=== PATIENT | female | born 1955 | race Caucasian/White ===

== ENCOUNTER 2016-03-23 17:46 | Emergency (ER) | payer MEDICARE, OTHER ==
[~2016-03-23] VITALS: Ht 154.9 cm; Wt 120.0 kg
[~2016-03-23 17:46] MED LIST: ATOR80TA PO; BENZ100 PO; CITA-48 PO; CYCL-36 PO; GABA300C3 PO; GLIP5 PO; LEVEMIR SQ; LOSA100T3 PO; METF-324 PO; NIAC1TAB5 PO; OMEP20TA PO
[2016-03-23 17:51] VITALS: BP 136/68; PULSE 87; RESP 12; TEMP 98.8; O2SAT 96
[2016-03-23 19:55] VITALS: BP 137/63; PULSE 79; RESP 18; O2SAT 95
[2016-03-23] MEDS ORDERED: LOSA100T3 PO (19:56)
[2016-03-23] MEDS ORDERED: ATOR1TAB18 PO (19:56)
[2016-03-23] MEDS ORDERED: GABA300C5 PO (19:56)
[2016-03-23] MEDS ORDERED: METF1000 PO (19:56)
[2016-03-23] MEDS ORDERED: SODIUM CHLOR 0.9% 1000 ML INJ 1,000 ML IV ONE (20:15)
--- NOTE | 2016-03-23 21:26 | RADRPT ---
EXAM DATE/TIME: 03/23/2016 21:17 [facility] COMPARISON: CT BRAIN W/O CONTRAST, December 09, 2015, 11:07. INDICATIONS : Trauma; dizziness. RADIATION DOSE: 49.30 CTDIvol (mGy) MEDICAL HISTORY : Cerebrovascular disease. Hypertension. SURGICAL HISTORY : None. ENCOUNTER: Initial ACUITY: 1 day PAIN SCALE: 0/10 LOCATION: cranial TECHNIQUE: Multiple contiguous axial images were obtained of the head. Using automated exposure control and adj ustment of the mA and/or kV according to patient size, radiation dose was kept as low as reasonably a chievable to obtain optimal diagnostic quality images. FINDINGS: CEREBRUM: The ventricles are normal for age. No evidence of midline shift, mass lesion, hemorrhage or acute in farction. No extra-axial fluid collections are seen. POSTERIOR FOSSA: The cerebellum and brainstem are intact. The 4th ventricle is midline. The cerebellopontine angle i s unremarkable. EXTRACRANIAL: The visualized portion of the orbits is intact. SKULL: The calvaria is intact. No evidence of skull fracture. CONCLUSION: Negative for an acute process.. Gerald Riddle MD FACR on March 23, 2016 at 21:24 Board Certified Radiologist. This report was verified electronically.
--- NOTE | 2016-03-23 22:17 | PD ---
HPI Chief Complaint: Anxiety Time Seen by Provider: 19:51 Travel History International Travel<30 days: No Contact w/Intl Traveler<30days: No Traveled to known affect area: No History of Present Illness HPI Patient 6-year-old female presents with anxiety symptoms. Patient is given 3 different histories. To my medical student her chief complaint was palpitations , her chief complaint me was dizziness and headache, her chief complaint to triage was anxiety. Patient states that she started feeling like the room was closing in on her earlier today for at least 6 hours began to feel some palpitations dizziness. She states she's also been having a headache. She is also concerned that she might be having mild withdrawals. Denies any fever cough congestion. Nursing relates a history that the patient possibly presented to a longterm today as she is homeless and was turned away because of her fall and that may have triggered her symptoms. My initial evaluation the patient is sleeping soundly and in no apparent distress. PFSH Past Medical History Hx Anticoagulant Therapy: Yes Arthritis: No Asthma: Yes Anxiety: Yes Depression: Yes Heart Rhythm Problems: No Cancer: No Cardiovascular Problems: Yes (HTN) High Cholesterol: Yes Chest Pain: No Congestive Heart Failure: No COPD: No Cerebrovascular Accident: Yes (CVA) Diabetes: Yes Patient Takes Glucophage: Yes Diminished Hearing: No Endocrine: Yes Gastrointestinal Disorders: No Genitourinary: No Hypertension: Yes Immune Disorder: No Implanted Vascular Access Dvce: No Musculoskeletal: Yes Neurologic: No Psychiatric: Yes Reproductive: No Respiratory: Yes (asthma) Sleep Apnea: Yes (IS SUPPOSED TO USE CPAP AT NIGHT) Thyroid Disease: No Tetanus Vaccination: Unknown Influenza Vaccination: Yes ?: Not : 0 Para: 0 Miscarriage: 0 : 0 Past Surgical History Abdominal Surgery: No Cardiac Surgery: No Coronary Artery Bypass Graft: No Ear Surgery: No Endocrine Surgery: No Eye Surgery: No Genitourinary Surgery: No Gynecologic Surgery: No Neurologic Surgery: No Oral Surgery: No Thoracic Surgery: No Other Surgery: Yes Family History Family Myocardial Infarction: Yes Social History Alcohol Use: Yes (occ) Tobacco Use: Yes Substance Use: No Allergies-Medications (Allergen,Severity, Reaction): Coded Allergies: No Known Allergies (Unverified , 03/23/16) Reported Meds & Prescriptions Reported Meds & Active Scripts Active Reported Losartan-Hydrochlorothiazide 100-12.5 Mg Tab 1 Tab PO DAILY Gabapentin 300 Mg Cap 300 Mg PO TID Atorvastatin (Atorvastatin Calcium) 80 Mg Tab 80 Mg PO HS Metformin (Metformin HCl) 1,000 Mg Tab 1,000 Mg PO BIDPC With meals Review of Systems Except as stated in HPI: all other systems reviewed are Neg Physical Exam Narrative GENERAL: Well-developed well-nourished obese in no apparent distress unkempt. SKIN: Warm and dry. HEAD: Atraumatic. Normocephalic. EYES: Pupils equal and round. No scleral icterus. No injection or drainage. ENT: No nasal bleeding or discharge. Mucous membranes pink and moist. NECK: Trachea midline. No JVD. CARDIOVASCULAR: Regular rate and rhythm. No murmur appreciated. RESPIRATORY: No accessory muscle use. Clear to auscultation. Breath sounds equal bilaterally. GASTROINTESTINAL: Abdomen soft, non-tender, nondistended. Hepatic and splenic margins not palpable. MUSCULOSKELETAL: No obvious deformities. No clubbing. No cyanosis. No edema. NEUROLOGICAL: Awake and alert. Cranial nerves II through XII are grossly intact and nonfocal, 5 out of 5 strength in all 4 extremities. Cerebellar testing negative. Ambulates within even narrow-based gait. PSYCHIATRIC: Appropriate mood and affect; insight and judgment normal. Data Data Last Documented VS Vital Signs Date Time Temp Pulse Resp B/P Pulse Ox O2 Delivery O2 Flow Rate FiO2 03/23/16 19:55 99 18 03/23/16 19:55 137/63 95 Room Air 03/23/16 17:51 98.8 Orders Sodium Chlor 0.9% 1000 Ml Inj (Ns 1000 M (03/23/16 20:15) Ct Brain W/O Iv Contrast(Rout) (03/23/16 ) Electrocardiogram (03/23/16 ) MDM Medical Decision Making Medical Screen Exam Complete: Yes Emergency Medical Condition: Yes Interpretation(s) EKG shows normal sinus rhythm normal axis normal R-wave progression. No concerning ST T changes. This normal EKG. Differential Diagnosis Anxiety, palpitations, headache, poor social circumstance Narrative Course Patient was removing emergency department, CT head negative EKG reassuring. My revisit she is sleeping soundly in no apparent distress. She was offered pain medicine and declined P Rich is stable for discharge at this time. Discussed with her follow-up options including [facility] clinic. Diagnosis Primary Impression: Anxiety Disposition: 01 DISCHARGE HOME Condition: Stable Sridhar Kern MD Mar 23, 2016 22:17
--- NOTE | 2016-03-24 20:07 | EKG ---
Date Performed: 03/23/2016 Time Performed: 22:08:58 PTAGE: 60 years EKG: Sinus rhythm WITH OCCASIONAL VENTRICULAR PREMATURE COMPLEXES BORDERLINE ECG Compared to prior tracing no signific ant change DOCTOR: Dillan Aguilar Interpretating Date/Time 03/24/2016 20:06:22
== END 2016-03-23 22:51 | disposition home or self-care (01) ==
LOC: NEPA 17:46
DX: F41.9 Anxiety disorder, unspecified (principal); R94.31 Abnormal electrocardiogram [ECG] [EKG]; Z79.01 Long term (current) use of anticoagulants; J45.909 Unspecified asthma, uncomplicated; I10 Essential (primary) hypertension; E78.00 Pure hypercholesterolemia, unspecified; E11.9 Type 2 diabetes mellitus without complications; G47.30 Sleep apnea, unspecified; Z86.73 Personal history of transient ischemic attack (TIA), and cerebral infarction without residual deficits; Z72.0 Tobacco use; Z59.0 Homelessness
CPT/HCPCS: 70450; 93005

== ENCOUNTER 2016-03-24 22:45 | Emergency (ER) | payer MEDICARE, OTHER ==
[~2016-03-24] VITALS: Ht 154.9 cm; Wt 120.0 kg
[~2016-03-24 22:45] MED LIST changes: +ATOR1TAB18 PO; -ATOR80TA PO; -BENZ100 PO; -CITA-48 PO; -CYCL-36 PO; -GABA300C3 PO; +GABA300C5 PO; -GLIP5 PO; -LEVEMIR SQ; -METF-324 PO; +METF1000 PO; -NIAC1TAB5 PO; -OMEP20TA PO
[2016-03-24 23:06] VITALS: BP 148/67; PULSE 70; RESP 16; TEMP 97.8; O2SAT 95
--- NOTE | 2016-03-25 01:03 | PD ---
HPI Chief Complaint: Pain: Acute or Chronic Time Seen by Provider: 00:50 Travel History International Travel<30 days: No Contact w/Intl Traveler<30days: No Traveled to known affect area: No History of Present Illness HPI 60-year-old female who is homeless presents for evaluation of lower back pain. Symptoms started 2 months ago. Pain is an aching pain in the left lower back which is constant but worse with movement. She does note that she fell a few days ago, she does not know if this contributed to her pain. The patient was seen here yesterday for evaluation of anxiety however she did not mention that she had lower back pain. She denies bowel or bladder incontinence, radicular symptoms, saddle anesthesia. She is not using any medication for symptom relief. No other complaints. PFSH Past Medical History Hx Anticoagulant Therapy: Yes Arthritis: No Asthma: Yes Anxiety: Yes Depression: Yes Heart Rhythm Problems: No Cancer: No Cardiovascular Problems: Yes (HTN) High Cholesterol: Yes Chest Pain: No Congestive Heart Failure: No COPD: No Cerebrovascular Accident: Yes (CVA) Diabetes: Yes Diminished Hearing: No Endocrine: Yes Gastrointestinal Disorders: No Genitourinary: No Hypertension: Yes Immune Disorder: No Implanted Vascular Access Dvce: No Musculoskeletal: Yes Neurologic: No Psychiatric: Yes Reproductive: No Respiratory: Yes Sleep Apnea: Yes (IS SUPPOSED TO USE CPAP AT NIGHT) Thyroid Disease: No : 0 Para: 0 Miscarriage: 0 : 0 Past Surgical History Abdominal Surgery: No Cardiac Surgery: No Coronary Artery Bypass Graft: No Ear Surgery: No Endocrine Surgery: No Eye Surgery: No Genitourinary Surgery: No Gynecologic Surgery: No Neurologic Surgery: No Oral Surgery: No Thoracic Surgery: No Other Surgery: Yes Social History Alcohol Use: Yes (occ) Tobacco Use: Yes Substance Use: No Allergies-Medications (Allergen,Severity, Reaction): Coded Allergies: No Known Allergies (Unverified , 03/23/16) Reported Meds & Prescriptions Reported Meds & Active Scripts Active Reported Losartan-Hydrochlorothiazide 100-12.5 Mg Tab 1 Tab PO DAILY Gabapentin 300 Mg Cap 300 Mg PO TID Atorvastatin (Atorvastatin Calcium) 80 Mg Tab 80 Mg PO HS Metformin (Metformin HCl) 1,000 Mg Tab 1,000 Mg PO BIDPC With meals Review of Systems Except as stated in HPI: all other systems reviewed are Neg Physical Exam Narrative GENERAL: Well-developed well-nourished female in no acute distress sleeping upon initial examination SKIN: Warm and dry. HEAD: Atraumatic. Normocephalic. EYES: Pupils equal and round. No scleral icterus. No injection or drainage. ENT: No nasal bleeding or discharge. Mucous membranes pink and moist. NECK: Trachea midline. No JVD. CARDIOVASCULAR: Regular rate and rhythm. No murmur appreciated. RESPIRATORY: No accessory muscle use. Clear to auscultation. Breath sounds equal bilaterally. GASTROINTESTINAL: Abdomen soft, non-tender, nondistended. MUSCULOSKELETAL: No obvious deformities. Generalized tenderness to palpation to the lower back region. NEUROLOGICAL: Awake and alert. No obvious cranial nerve deficits. Motor grossly within normal limits. Normal speech. Data Data Last Documented VS Vital Signs Date Time Temp Pulse Resp B/P Pulse Ox O2 Delivery O2 Flow Rate FiO2 03/24/16 23:06 97.8 70 16 148/67 95 Room Air Orders Spine, Lumbar - Ltd (Ap & Lat) (03/25/16 ) [facility] Medical Decision Making Medical Screen Exam Complete: Yes Emergency Medical Condition: Yes Medical Record Reviewed: Yes Differential Diagnosis Chronic lower back pain, degenerative disc disease, compression fracture, spinal stenosis, piriformis syndrome, discitis, osteomyelitis, epidural abscess Narrative Course 60-year-old female presents with 2 months of lower back pain. Physical examination reveals generalized tenderness to palpation to lower back. She appears well. She is not septic in appearance. I don't suspect an infectious etiology or central spinal cord issue. Lumbar spine x-ray revealed no acute abnormalities, some degenerative changes. Upon reexamination the patient is sleeping. She is stable for discharge. Diagnosis Primary Impression: Lower back pain Qualified Code: M54.5 - Chronic low back pain without sciatica, unspecified back pain laterality Additional Instructions: Take Tylenol or Motrin for discomfort. Follow-up with primary care physician as needed. Med/Other Pt SpecificInfo: No Change to Meds Disposition: 01 DISCHARGE HOME Condition: Stable Ar Pickens Mar 25, 2016 01:03
--- NOTE | 2016-03-25 02:41 | RADRPT ---
EXAM DATE/TIME: 03/25/2016 01:20 [facility] COMPARISON: CT ABDOMEN & PELVIS W/O CONTRAST, September 24, 2015, 17:28. INDICATIONS : Patient states lower back pain after fall. MEDICAL HISTORY : None. SURGICAL HISTORY : None. ENCOUNTER: Initial ACUITY: 3 days PAIN SCORE: 6/10 LOCATION: Bilateral Lumbar FINDINGS: Lumbar spine alignment is satisfactory. There is no evidence of fracture or destructive change. There is degenerative change most notably in the lower lumbar spine with disc space narrowing most signifi cantly at L4-5 and degenerative changes in the posterior facets. CONCLUSION: Degenerative changes. No acute bony injury Kashmir Pompa MD on March 25, 2016 at 2:37 Board Certified Radiologist. This report was verified electronically.
== END 2016-03-25 04:29 | disposition home or self-care (01) ==
LOC: NEPB 22:45
DX: M54.5 Low back pain (principal); I10 Essential (primary) hypertension; E78.00 Pure hypercholesterolemia, unspecified; E11.9 Type 2 diabetes mellitus without complications; G47.30 Sleep apnea, unspecified; Z59.0 Homelessness; Z72.0 Tobacco use; Z79.01 Long term (current) use of anticoagulants; Z79.84 Long term (current) use of oral hypoglycemic drugs; Z87.09 Personal history of other diseases of the respiratory system; Z86.59 Personal history of other mental and behavioral disorders; Z86.73 Personal history of transient ischemic attack (TIA), and cerebral infarction without residual deficits; Z87.39 Personal history of other diseases of the musculoskeletal system and connective tissue
CPT/HCPCS: 72100; 99283

== ENCOUNTER 2017-01-15 21:30 | Emergency (ER) | payer MEDICARE, OTHER ==
[~2017-01-15] VITALS: Ht 154.9 cm; Wt 110.0 kg
[~2017-01-15 21:30] MED LIST changes: -ATOR1TAB18 PO; +ATOR80TA45 PO
[2017-01-15 21:33] VITALS: BP 158/70; PULSE 94; RESP 16; TEMP 96.7; O2SAT 98
[2017-01-15 21:53] VITALS: TEMP 97.7
--- NOTE | 2017-01-15 21:58 | PD ---
HPI Chief Complaint: Cold / Flu Symptoms Time Seen by Provider: 21:53 Travel History International Travel<30 days: No Contact w/Intl Traveler<30days: No Traveled to known affect area: No History of Present Illness HPI Patient comes in complaining of not feeling well. Patient states she started sneezing and coughing about 1 hour prior to arrival. Patient denies doing anything for this. Denies anything making it better or worse. Patient states she was visiting a friend in the hospital when symptoms began. Patient denies any known fevers, nausea, vomiting, abdominal pain, chest pain, shortness of breath, or headaches. Patient states she's had diarrhea for several months. Denies any blood in the stool or melena. Denies any recent antibiotic use. PFSH Past Medical History Hx Anticoagulant Therapy: Yes Arthritis: No Asthma: Yes Anxiety: Yes Depression: Yes Heart Rhythm Problems: No Cancer: No Cardiovascular Problems: Yes (HTN) High Cholesterol: Yes Chest Pain: No Congestive Heart Failure: No COPD: No Cerebrovascular Accident: Yes (CVA) Diabetes: Yes Patient Takes Glucophage: Yes (01/19/2017) Diminished Hearing: No Endocrine: Yes Gastrointestinal Disorders: No Genitourinary: No Hypertension: Yes Immune Disorder: No Implanted Vascular Access Dvce: No Musculoskeletal: Yes Neurologic: No Psychiatric: Yes Reproductive: No Respiratory: Yes Sleep Apnea: Yes (IS SUPPOSED TO USE CPAP AT NIGHT) Thyroid Disease: No Tetanus Vaccination: Unknown : 0 Para: 0 Miscarriage: 0 : 0 Past Surgical History Abdominal Surgery: No Cardiac Surgery: No Coronary Artery Bypass Graft: No Ear Surgery: No Endocrine Surgery: No Eye Surgery: No Genitourinary Surgery: No Gynecologic Surgery: No Neurologic Surgery: No Oral Surgery: No Thoracic Surgery: No Other Surgery: Yes Family History Family Myocardial Infarction: Yes Social History Alcohol Use: Yes (occ) Tobacco Use: Yes Substance Use: No Allergies-Medications (Allergen,Severity, Reaction): Coded Allergies: No Known Allergies (Unverified Adverse Reaction, Unknown, 01/15/17) Reported Meds & Prescriptions Reported Meds & Active Scripts Active Reported Losartan-Hydrochlorothiazide 100-12.5 Mg Tab 1 Tab PO DAILY Gabapentin 300 Mg Cap 300 Mg PO TID Atorvastatin (Atorvastatin Calcium) 80 Mg Tab 80 Mg PO HS Metformin (Metformin HCl) 1,000 Mg Tab 1,000 Mg PO BIDPC With meals Review of Systems Except as stated in HPI: all other systems reviewed are Neg Physical Exam Narrative GENERAL: Well-developed, overly nourished, in no acute distress, and non-ill appearing. SKIN: Focused skin assessment warm and dry. HEAD: Atraumatic. Normocephalic. EYES: Pupils equal and round. EOMI. No scleral icterus. No injection or drainage. ENT: No nasal bleeding or discharge. Mucous membranes pink and moist. Tympanic membranes pearly argueta bilaterally. Posterior friends nonerythematous without exudate. Uvula is midline. NECK: Trachea midline. Supple. No cervical lymphadenopathy. No nuclear rigidity. CARDIOVASCULAR: Regular rate and rhythm. No murmur appreciated. RESPIRATORY: No accessory muscle use. No respiratory distress. Clear to auscultation. Breath sounds equal bilaterally. MUSCULOSKELETAL: No obvious deformities. No clubbing. No cyanosis. No edema. Full range of motion. NEUROLOGICAL: Awake and alert. No obvious cranial nerve deficits. Motor grossly within normal limits. Normal speech. PSYCHIATRIC: Appropriate mood and affect; insight and judgment normal. Data Data Last Documented VS Vital Signs Date Time Temp Pulse Resp B/P (MAP) Pulse Ox O2 Delivery O2 Flow Rate FiO2 01/15/17 23:13 01/15/17 21:53 97.7 01/15/17 21:33 94 16 98 Room Air Orders Orders Influenzae A/B Antigen (01/15/17 21:53) Acetaminophen (Tylenol) (01/15/17 23:15) Ed Discharge Order (01/15/17 23:07) MDM Medical Decision Making Medical Screen Exam Complete: Yes Emergency Medical Condition: Yes Differential Diagnosis Influenza, UTI, viral syndrome, cough, other Narrative Course [id number] patient been noted to be playing comfortably on her phone for the past 30 minutes in no acute distress. Patient in no obvious distress upon re-evaluation. All pertinent laboratory result(s) discussed with patient. Discussed patient with Dr. Carreno prior to discharge, who is in agreement with plan of care and disposition. Any questions /concerns in reference to patient diagnosis/condition discussed and clarified prior to patient's discharge. Reinforced sheer importance of close follow up with patient's primary physician or primary care clinic. Instructed patient to return to ED immediately, if symptoms return/worsen. Patient showed understanding of above instructions. Further instructions and recommendations were detailed in discharge paperwork. Patient ambulated without difficulty out of ED at discharge. Diagnosis Primary Impression: Cough Referrals: [facility] Patient Instructions: Acute Cough (ED), General Instructions Additional Instructions: Follow-up with your primary care physician. Return to the emergency department if symptoms get worse. Disposition: 01 DISCHARGE HOME Condition: Stable Yang Smith Jan 15, 2017 21:58
[2017-01-15] MEDS ORDERED: ACETAMINOPHEN 500 MG CPLT PO ONE (23:15)
== END 2017-01-15 23:24 | disposition home or self-care (01) ==
LOC: NEPD 21:30
DX: R05 Cough (principal); R19.7 Diarrhea, unspecified; J45.909 Unspecified asthma, uncomplicated; F41.9 Anxiety disorder, unspecified; I10 Essential (primary) hypertension; E78.00 Pure hypercholesterolemia, unspecified; E11.9 Type 2 diabetes mellitus without complications; Z72.0 Tobacco use; Z86.73 Personal history of transient ischemic attack (TIA), and cerebral infarction without residual deficits
CPT/HCPCS: 87804; 99283

== ENCOUNTER 2017-01-16 17:27 | Emergency (ER) | payer MEDICARE, OTHER ==
[~2017-01-16] VITALS: Ht 154.9 cm; Wt 114.0 kg
[2017-01-16 17:29] VITALS: BP 141/63; PULSE 82; RESP 16; TEMP 98; O2SAT 97
[2017-01-16 19:43] VITALS: BP 159/66; PULSE 85; RESP 20; TEMP 98.2; O2SAT 96
--- NOTE | 2017-01-16 20:19 | PD ---
HPI Chief Complaint: Cold / Flu Symptoms Time Seen by Provider: 19:44 Travel History International Travel<30 days: No Contact w/Intl Traveler<30days: No Traveled to known affect area: No History of Present Illness HPI Patient was back to emergency department complaining of continued sneezing and coughing that began yesterday while visiting a friend in the hospital. Patient states earlier today when she was talking to her cousin she felt like her throat was going horse which has since resolved. Patient denies any fevers with this. Reports cough is nonproductive. Denies any nausea, vomiting, diarrhea, chest pain, shortness of breath, headaches, or loss change in bowel or bladder. Patient denies doing anything for this as she states she does have money to buy [id number] medication. Patient denies anything making it better or worse. History Past Medical Histgory Hx Cancer: No Social History Alcohol Use: Yes (occ) Tobacco Use: Yes Allergies-Medications (Allergen,Severity, Reaction): Coded Allergies: No Known Allergies (Unverified Adverse Reaction, Unknown, 01/15/17) Reported Meds & Prescriptions Reported Meds & Active Scripts Active Reported Losartan-Hydrochlorothiazide 100-12.5 Mg Tab 1 Tab PO DAILY Gabapentin 300 Mg Cap 300 Mg PO TID Atorvastatin (Atorvastatin Calcium) 80 Mg Tab 80 Mg PO HS Metformin (Metformin HCl) 1,000 Mg Tab 1,000 Mg PO BIDPC With meals Review of Systems Except as stated in HPI: all other systems reviewed are Neg Physical Exam Narrative GENERAL: Well-developed, overly nourished, in no acute distress, and non-ill appearing. SKIN: Focused skin assessment warm and dry. HEAD: Atraumatic. Normocephalic. EYES: Pupils equal and round. EOMI. No scleral icterus. No injection or drainage. ENT: No nasal bleeding or discharge. Mucous membranes pink and moist. Tympanic membranes pearly argueta bilaterally. Posterior pharynx non-erythematous without exudate. Uvula is midline. NECK: Trachea midline. No cervical lymphadenopathy. Supple. No nuclear rigidity. CARDIOVASCULAR: Regular rate and rhythm. No murmur appreciated. RESPIRATORY: No accessory muscle use. No respiratory distress. Clear to auscultation. Breath sounds equal bilaterally. No coughing on exam. Patient speaking in full sentences without difficulty. MUSCULOSKELETAL: No obvious deformities. No clubbing. No cyanosis. No edema. Full range of motion. NEUROLOGICAL: Awake and alert. No obvious cranial nerve deficits. Motor grossly within normal limits. Normal speech. PSYCHIATRIC: Appropriate mood and affect; insight and judgment normal. Data Data Last Documented VS Vital Signs Date Time Temp Pulse Resp B/P (MAP) Pulse Ox O2 Delivery O2 Flow Rate FiO2 01/16/17 19:43 98.2 85 20 159/66 (97) 96 Room Air MDM Medical Screen Exam Complete: Yes Emergency Medical Condition: No Narrative Course History and physical exam findings are not consistent with an emergent medical condition. She was given the option of receiving additional care, but has declined. Therefore the appropriate counseling recommendations were discussed with the patient and she was instructed to follow-up with her primary care physician as soon as possible for reevaluation. Patient was also informed of community resources from which she can obtain additional care. She is agreeable and verbalizes an understanding of the proposed plan. The patient states she will immediately return to the emergency department if her current complaints do not improve, new symptoms arise, or emergent condition develops. Patient ambulated out of the emergency department without difficulty. Primary Impression: Encounter for medical screening examination Disposition: [facility]-ED USE ONLY Condition: Stable Yang Smith Jan 16, 2017 20:19
== END 2017-01-16 20:02 | disposition left against medical advice (07) ==
LOC: NEPD 17:27
DX: R05 Cough (principal)
CPT/HCPCS: 99281

== ENCOUNTER 2017-01-19 01:16 | Emergency (ER) | payer MEDICARE, OTHER ==
[~2017-01-19] VITALS: Ht 154.9 cm; Wt 115.0 kg
[2017-01-19 01:19] VITALS: BP 135/86; PULSE 85; RESP 18; TEMP 98; O2SAT 96
--- NOTE | 2017-01-19 01:53 | PD ---
HPI Chief Complaint: Pain: Acute or Chronic Time Seen by Provider: 01:39 Travel History International Travel<30 days: No Contact w/Intl Traveler<30days: No Traveled to known affect area: No History of Present Illness HPI Patient comes in complaining of continued cough and generalized body aches ongoing for 5 days. Patient states cough is productive with clear phlegm. Patient denies anything making it better or worse. Patient states that she was staying in a hotel until she ran out of money and now she is homeless as she was unable to get in anywhere. Denies any nausea, vomiting, fevers, headaches, diarrhea, chest pain, or shortness of breath. PFSH Past Medical History Hx Anticoagulant Therapy: Yes Arthritis: No Asthma: Yes Anxiety: Yes Depression: Yes Heart Rhythm Problems: No Cancer: No Cardiovascular Problems: Yes (HTN) High Cholesterol: Yes Chest Pain: No Congestive Heart Failure: No COPD: No Cerebrovascular Accident: Yes (CVA) Diabetes: Yes Patient Takes Glucophage: Yes Diminished Hearing: No Endocrine: Yes Gastrointestinal Disorders: No Genitourinary: No Hypertension: Yes Immune Disorder: No Implanted Vascular Access Dvce: No Musculoskeletal: Yes Neurologic: No Psychiatric: Yes Reproductive: No Respiratory: Yes Sleep Apnea: Yes (IS SUPPOSED TO USE CPAP AT NIGHT) Thyroid Disease: No : 0 Para: 0 Miscarriage: 0 : 0 Past Surgical History Abdominal Surgery: No Cardiac Surgery: No Coronary Artery Bypass Graft: No Ear Surgery: No Endocrine Surgery: No Eye Surgery: No Genitourinary Surgery: No Gynecologic Surgery: No Neurologic Surgery: No Oral Surgery: No Thoracic Surgery: No Other Surgery: Yes Family History Family Myocardial Infarction: Yes Social History Alcohol Use: Yes (occ) Tobacco Use: Yes (2 CIGS PER WEEK) Substance Use: No Allergies-Medications (Allergen,Severity, Reaction): Coded Allergies: No Known Allergies (Unverified Adverse Reaction, Unknown, 01/19/17) Reported Meds & Prescriptions Reported Meds & Active Scripts Active Tessalon Perles (Benzonatate) 100 Mg Cap 200 Mg PO TID PRN Reported Losartan-Hydrochlorothiazide 100-12.5 Mg Tab 1 Tab PO DAILY Gabapentin 300 Mg Cap 300 Mg PO TID Atorvastatin (Atorvastatin Calcium) 80 Mg Tab 80 Mg PO HS Metformin (Metformin HCl) 1,000 Mg Tab 1,000 Mg PO BIDPC With meals Review of Systems Except as stated in HPI: all other systems reviewed are Neg Physical Exam Narrative GENERAL: Well-developed, overly nourished, in no acute distress, and non-ill appearing. SKIN: Focused skin assessment warm and dry. HEAD: Atraumatic. Normocephalic. EYES: Pupils equal and round. EOMI. No scleral icterus. No injection or drainage. ENT: No nasal bleeding or discharge. Mucous membranes pink and moist. NECK: Trachea midline. Supple. No nuclear rigidity. CARDIOVASCULAR: Regular rate and rhythm. No murmur appreciated. RESPIRATORY: No accessory muscle use. No respiratory distress. Clear to auscultation. Breath sounds equal bilaterally. Hacking cough noted on exam. MUSCULOSKELETAL: No obvious deformities. No clubbing. No cyanosis. No edema. Full range of motion. NEUROLOGICAL: Awake and alert. No obvious cranial nerve deficits. Motor grossly within normal limits. Normal speech. PSYCHIATRIC: Appropriate mood and affect; insight and judgment normal. Data Data Last Documented VS Vital Signs Date Time Temp Pulse Resp B/P (MAP) Pulse Ox O2 Delivery O2 Flow Rate FiO2 01/19/17 03:08 01/19/17 01:19 98.0 85 18 96 Room Air Orders Orders Chest, Pa & Lat (01/19/17 ) Urinalysis - C+S If Indicated (01/19/17 02:24) Urine Culture (01/19/17 02:30) Ed Discharge Order (01/19/17 03:02) Labs Laboratory Tests Test 01/19/17 02:30 Urine Color YELLOW Urine Turbidity HAZY Urine pH 5.5 Urine Specific [place] 1.025 Urine Protein 30 mg/dL Urine Glucose (UA) 1000 mg/dL Urine Ketones NEG mg/dL Urine Occult Blood NEG Urine Nitrite NEG Urine Bilirubin NEG Urine Urobilinogen 2.0 MG/DL Urine Leukocyte Esterase NEG Urine RBC 2 /hpf Urine WBC 4 /hpf Urine Squamous Epithelial Cells 4 /hpf Urine Bacteria OCC /hpf Urine Hyaline Casts 16 /lpf Urine Waxy Casts 1 /lpf Urine Mucus FEW /lpf Microscopic Urinalysis Comment CULTURE INDICATED MDM Medical Decision Making Medical Screen Exam Complete: Yes Emergency Medical Condition: Yes Interpretation(s) Last Impressions Chest X-Ray 01/19/17 0000 Signed Impressions: Service Date/Time: Thursday, January 19, 2017 01:56 - CONCLUSION: Normal examination. Lane Granado MD Differential Diagnosis Pneumonia, bronchitis, COPD exacerbation, upper respiratory infection, chronic cough, homeless, malingering Narrative Course Patient in no obvious distress upon re-evaluation. UA shows occasional bacteria. Patient is asymptomatic and afebrile will await culture. All pertinent laboratory/Radiology result(s) discussed with patient. Patient was asked if they wanted to speak to my attending, which the patient did not wish to do at this time. Any questions/concerns in reference to patient diagnosis/ condition discussed and clarified prior to patient's discharge. Reinforced sheer importance of close follow up with patient's primary physician or primary care clinic. Instructed patient to return to ED immediately, if symptoms return/ worsen. Patient showed understanding of above instructions. Further instructions and recommendations were detailed in discharge paperwork. Patient ambulated without difficulty out of ED at discharge. Diagnosis Primary Impression: Cough Referrals: [facility] Patient Instructions: Acute Cough (ED), General Instructions Additional Instructions: Follow-up with your primary care physician this week for reevaluation. Take all medication as prescribed. Return to the emergency department if symptoms get worse. Med/Other Pt SpecificInfo: Prescription(s) given Scripts Benzonatate (Tessalon Perles) 100 Mg Cap 200 MG PO TID Y for COUGH, #24 CAP 0 Refills Prov: Megan Dolan MD 01/19/17 Disposition: 01 DISCHARGE HOME Condition: Stable Yang Smith Jan 19, 2017 01:53
--- NOTE | 2017-01-19 02:11 | RADRPT ---
EXAM DATE/TIME: 01/19/2017 01:56 [facility] COMPARISON: CHEST SINGLE AP, December 10, 2015, 21:46. INDICATIONS : Cough. MEDICAL HISTORY : Hypertension. Diabetes mellitus type II. Asthma. Sleep apnea. SURGICAL HISTORY : None. ENCOUNTER: Initial ACUITY: 1 day PAIN SCORE: 0/10 LOCATION: Bilateral chest FINDINGS: A single view of the chest demonstrates the lungs to be symmetrically aerated without evidence of mas s, infiltrate or effusion. The cardiomediastinal contours are unremarkable. Osseous structures are intact. CONCLUSION: Normal examination. Lane Granado MD on January 19, 2017 at 2:09 Board Certified Radiologist. This report was verified electronically.
[2017-01-19 02:43] LABS: BACTERIA, URINE OCC /hpf; BLOOD, URINE NEG (NEG); CULTURE IF INDICATED CULTURE INDICATED; GLUCOSE,URINE 1000 mg/dL (NEG); HYALINE CAST, URINE 16 /lpf (RARE); KETONE, URINE NEG (NEG); MUCUS URINE FEW /lpf (OCC); NITRITE,URINE NEG (NEG); PH, URINE 5.5 (5.0-8.5); SQUAMOUS EPITHELIAL CELL URINE 4 /hpf (0-5); URINE COLOR YELLOW (YELLW/STRAW); WAXY CAST, URINE 1 /lpf
[2017-01-19 02:44] LABS: COMMENT (UR) CULTURE INDICATED
[2017-01-19] MEDS ORDERED: BENZ100 PO (03:01)
== END 2017-01-19 03:13 | disposition home or self-care (01) ==
LOC: NEPK 01:16
DX: R05 Cough (principal); B96.89 Other specified bacterial agents as the cause of diseases classified elsewhere; J45.909 Unspecified asthma, uncomplicated; F41.9 Anxiety disorder, unspecified; F32.9 Major depressive disorder, single episode, unspecified; I10 Essential (primary) hypertension; E78.00 Pure hypercholesterolemia, unspecified; E11.9 Type 2 diabetes mellitus without complications; F17.210 Nicotine dependence, cigarettes, uncomplicated
CPT/HCPCS: 71020; 81001; 87086; 99284